=== PATIENT | female | born 1970 | race African-American/Black ===

== ENCOUNTER 2017-08-09 12:57 | Emergency (ER) | payer MEDICAID ==
[~2017-08-09] VITALS: Ht 160 cm; Wt 63.0 kg
[2017-08-09 14:44] LABS: HCG UR SG 1.015 (1.003-1.030)
[2017-08-09 14:47] LABS: CULTURE INDICATED? NO; MICROSCOPIC NOT IND
[2017-08-09 15:04] LABS: CLUE CELLS NONE SEEN (NONE SEEN); WET PREP WBCS NONE SEEN (FEW)
[2017-08-09 15:54] VITALS: BP 117/91
== END 2017-08-09 15:57 | disposition home or self-care (01) ==
LOC: ED 13:48
DX: B37.3 Candidiasis of vulva and vagina (principal)
CPT/HCPCS: 81003; 81025; 87210; 87491; 87591; 87808; 99284

== ENCOUNTER 2018-04-19 12:54 | Emergency (ER) | payer MEDICAID | END 2018-04-19 13:32 | LOC: ED 13:00 | DX: N93.9 Abnormal uterine and vaginal bleeding, unspecified (principal); Z53.21 Procedure and treatment not carried out due to patient leaving prior to being seen by health care provider ==

== ENCOUNTER 2019-07-15 13:44 | Emergency (ER) | payer MEDICAID ==
[~2019-07-15] VITALS: Ht 162.6 cm; Wt 70.9 kg
--- NOTE | 2019-07-15 15:27 | NUR ---
TO ROOM 24
--- NOTE | 2019-07-15 15:49 | NUR ---
PATIENT BROUGHT BACK FROM TRIAGE WITH CHIEF COMPLAINT OF VAGINAL DISCHARGE AND INTERMITTENT PAIN FOP 3 DAYS.
[2019-07-15 15:54] VITALS: BP 140/88
[2019-07-15 16:12] LABS: HCG UR SG 1.033 (1.003-1.030); MICROSCOPIC NOT IND
[2019-07-15 16:16] LABS: CULTURE INDICATED? NO
--- NOTE | 2019-07-15 16:50 | NUR ---
ERMD AT BEDSIDE FOR PELVIC EVAL.
[2019-07-15 17:13] LABS: CLUE CELLS PRESENT (NONE SEEN); WET PREP WBCS FEW (FEW)
--- NOTE | 2019-07-15 17:41 | NUR ---
PATIENT RESTING IN BED
--- NOTE | 2019-07-15 18:05 | NUR ---
DISCHARGE INSTRUCTIONS REVIEWED.
== END 2019-07-15 18:19 | disposition home or self-care (01) ==
LOC: ED 17:05
DX: N76.0 Acute vaginitis (principal)
CPT/HCPCS: 81003; 81025; 87210; 87491; 87591; 87808; 99283